=== PATIENT | female | born 1965 | race Caucasian/White ===

== ENCOUNTER → 2024-01-12 09:23 | Outpatient (REF) | payer OTHER, SELFPAY | LOC: RCS 09:23 | PROVIDERS: ATTENDING PHYSICIAN Internal Medicine Cardiovascular Disease; FAMILY PHYSICIAN Nurse Practitioner Family | DX: R07.9 Chest pain, unspecified (principal); I10 Essential (primary) hypertension; R06.02 Shortness of breath; E78.2 Mixed hyperlipidemia; R73.01 Impaired fasting glucose; R79.89 Other specified abnormal findings of blood chemistry; R82.90 Unspecified abnormal findings in urine | CPT/HCPCS: 93017; 36415 ==

== ENCOUNTER 2024-09-30 10:06 | Emergency (ER) | payer OTHER, SELFPAY ==
[2024-09-30 10:35] VITALS: BP 165/95
[2024-09-30 11:17] VITALS: BP 177/104
[2024-09-30 11:48] LABS: % Basophils 0.9 % (0-2); % Eosinophils 1.5 % (0-6); % Immature Granulocytes 0.4 % (0-0.5); % Lymphocytes 16.7 % (20.5-51.1); % Monocytes 8.5 % (1.7-9.3); Absolute Basophils 0.1 10^3/uL (0-0.2); Absolute Eosinophils 0.1 10^3/uL (0-0.7); Absolute Lymphocytes 0.9 10^3/uL (1.2-3.4); Absolute Monocytes 0.5 10^3/uL (0.1-0.6); Absolute Neutrophils 3.8 10^3/uL (1.4-6.5); Hematocrit 43.6 % (37.0-47.0); Mean Corp Hgb Conc. 34.4 g/dL (33.0-37.0); Mean Corpuscular Hgb 31.1 pg (27.0-31.0); Mean Corpuscular Volume 90.5 fL (81.0-99.0); Mean Platelet Volume 8.7 fL (7.4-10.4); Nucleated Red Blood Cells % 0 %; Platelet Count 404 10^3/uL (130-400); Red Blood Cell Count 4.82 10^6/uL (4.20-5.40); Red Cell Dist. Width 12.9 % (11.5-14.5); White Blood Cell Count 5.3 10^3/uL (4.8-10.8)
[2024-09-30 12:01] LABS: ALT (SGPT) 51 U/L (0-35); AST (SGOT) 45 U/L (14-36); Albumin 4.5 g/dl (3.5-5.0); Alkaline Phosphatase 82 U/L (38-126); Blood Urea Nitrogen 17 mg/dl (7-17); Calcium 9.9 mg/dl (8.4-10.2); Carbon Dioxide 27 mmol/L (22-30); Chloride 100 mmol/L (98-107); Glucose 107 mg/dl (70-99); Potassium 4.6 mmol/L (3.5-5.1); Sodium 137 mmol/L (135-145); Total Bilirubin 0.5 mg/dl (0.2-1.3); eGFR > 60.00
[2024-09-30 12:13] LABS: Troponin I < 0.012 ng/ml
--- NOTE | 2024-09-30 12:51 | ED.GENMED ---
History of Present Illness
General
Chief Complaint: Abdominal Pain
Source: patient
Exam Limitations: none
Time Seen by Provider: 09/30/24 12:50
Nursing documentation reviewed up to this point in time: agreed with
History of Present Illness
History of Present Illness:
59-year-old female with history of HTN, anxiety presents for a 5 minute episode at 9:45 a.m. of sudden onset sharp left side pain under her left breast that slowly subsided after 5 minutes. With the pain she had 'trouble breathing, my heart was
racing so I took a Baby Aspirin' during this time she also felt 'tingly in my hands and all over,' and came here. Had a slight discomfort in same area while in [place] but this also passed. Denies symptoms now.
Past History
Past History
ED Past Medical History: Psychiatric
ED Past Surgical History: None
Social History
Tobacco: Non-smoker
Alcohol: None
Drug: None
Personal:
Living: with family
Employment: Employed
Family History
Family History: Other
Review of Systems
Review of Systems
Allergies reviewed?: Yes
All Other Systems: ROS reviewed and negative except as documented in HPI and ROS
Constitutional: Denies fever or fatigue
Respiratory: Denies trouble breathing
Cardiac: Reports chest pain; Denies diaphoresis, palpitations or syncope
ABD/GI: Denies abdominal pain, nausea or vomiting
: Denies dysuria, frequency or difficulty voiding
Musculoskeletal: Reports no symptoms
Skin: Reports no symptoms
Neurological: Reports no symptoms
Phy Exam
Physical Exam
Physical Exam:
GENERAL: No acute distress. A&Ox3.
CONSTITUTIONAL: Afebrile.
EYES: clear, conjunctivae normal
ENMT: moist mucus membranes
RESPIRATORY: Regular respirations, nonlabored, lungs clear.
CARDIOVASCULAR: Regular rate and rhythm, slight murmur, no rubs.
GI: Soft, nontender, normal BS
MUSCULOSKELETAL: Moves with ease. Well perfused.
SKIN: Warm, dry, pink
PSYCH: Normal mood and affect. Well kept, interactive and appropriate
NEUROLOGIC: Awake, alert and oriented. No focal neurological deficits
Course
Orders/Labs/Results
Orders:
Orders
09/30/24 11:08
Electrocardiogram (*1) Urgent
Reason for Study: Abdominal Pain
EKG- Treatment ONCE
09/30/24 11:28
Complete Blood Count/With Diff Urgent
Comprehensive Metabolic Panel Urgent
Lipase Urgent
Troponin I Urgent
09/30/24 12:51
Add On- LAB Urgent
Tests Added?: Lipase
09/30/24 13:31
Troponin I Urgent
Abnormal Lab Results
09/30/24
11:28
MCH 31.1 H pg
(27.0-31.0)
Plt Count 404 H 10^3/uL
(130-400)
Absolute Lymphs (auto) 0.9 L 10^3/uL
(1.2-3.4)
Lymphocytes % 16.7 L %
(20.5-51.1)
Glucose 107 H mg/dl
(70-99)
AST 45 H U/L
(14-36)
ALT 51 H U/L
(0-35)
09/30/24 11:28
09/30/24 11:28
Vital Signs
Initial and Last Documented VS:
Initial Vital Signs
Temp Pulse Resp Pulse Ox
98.0 F 90 18 102
09/30/24 10:34 09/30/24 10:34 09/30/24 10:34 09/30/24 10:34
Last Documented Vital Signs
Temp Pulse Resp BP Pulse Ox
98.6 F 72 18 130/83 96
09/30/24 13:48 09/30/24 15:10 09/30/24 15:10 09/30/24 15:10 09/30/24 13:48
MDM/Problems Addressed
Differential Diagnosis Includes:
Musculoskeletal pain, OR,
MDM/Problems Addressed:
59-year-old female with history of HTN, anxiety presents for a 5 minute episode at 9:45 a.m. of sudden onset sharp left side pain under her left breast that slowly subsided after 5 minutes. With the pain she had 'trouble breathing, my heart was
racing so I took a Baby Aspirin' during this time she also felt 'tingly in my hands and all over,' and came here. Had a slight discomfort in same area while in [place] but this also passed. Denies symptoms now.
CBC normal
CMP normal
Troponin normal
EKG NSR
PE unremarkable save for a mild murmur which she states she was not aware of
1:00 p.m.
Reassured nothing acute
Most likely musculoskeletal
Asymptomatic now
Referred to Cardiology for murmur evaluation
Troponin #2 pending
3:00 p.m
Tropnin #2 neg
Pt stable for discharge
*EKG
EKG Intrepretation Date: 09/30/24
Interpretation: normal
Comparison EKG: no changes
Rate: normal
Rhythm: sinus
[place]: normal axis
Interval: normal interval
QRS Pattern: normal QRS
Ischemia: no ischemia
*Critical Care Note
Total Time (30-74mins, 75-104mins- exclusive of procedures): Not Applicable
ED Attending Note
-
Portions of this chart may have been created with voice recognition software.� Occasional wrong word or��sound alike� substitutions may have occurred due to the inherent limitations of voice recognition software.
Discharge Plan
Departure
Patient Disposition: Home (Routine Discharge)
Date of Disposition: 09/30/24
Time of Disposition: 15:05
Patient with high blood pressure during this ER visit?: Yes
Condition: Good
Discharge Problem:
Atypical chest pain
Instructions: Chest pain - Discharge instructions
Prescriptions:
No Action
metoprolol tartrate 25 MG tablet
25 mg PO DAILY
prednisone 10 MG tablet
10 mg PO .TAPER Qty: 30 0RF
Rx Instructions:
Take 40mg daily x3days, 30mg daily x3days,
20mg daily x3days, 10mg daily x3days.
venlafaxine 75 MG capsule,extended release 24hr
75 mg PO DAILY 30 Days Qty: 30 0RF
hydroxyzine pamoate [Vistaril] 25 MG capsule
25 mg PO BID PRN (Reason: anxiety) Qty: 20 0RF
Referrals:
Heriberto Leal MD [Active] - Next open appointment
Nicole Stewart CRNP [Family Provider] -
Jose Alberto Yates MD [Active] - Next open appointment
Activity Restrictions/Additional Instructions:
As we discussed, this was most likely musculoskeletal pain. Nothing worrisome in your workup here today.
I do hear a slight murmur, check with your PCP to see if it was noted in the past.
I gave you the name of a [employer], call and make appointment for a more thorough cardiac evaluation.
Return here immediately for chest pain that remains, chest pain with breaking out in a sweat, nausea/vomiting, lightheadedness or feeling sicker in any way.
Interventions
Interventions:
*Risk Screen - Suicide Last Done: 09/30/24 11:38
*General Assessment Last Done: 09/30/24 10:37
*Neglect/Abuse Screening Last Done: 09/30/24 11:38
*ED COVID-19 Vaccine History Last Done: 09/30/24 10:37
*Nursing Disposition Last Done: 09/30/24 15:11
LA-Obcufq-Tdjxgrizpl Assessment Last Done: 09/30/24 11:38
Discharge Date and Time
Discharge Date/Time: 09/30/24 15:11
Print Language: IVORIAN
[2024-09-30 13:37] LABS: Lipase 41 U/L (23-300)
[2024-09-30 13:48] VITALS: BP 140/89
[2024-09-30 14:37] LABS: Troponin I < 0.012 ng/ml
[2024-09-30 15:10] VITALS: BP 130/83
== END 2024-09-30 15:11 | disposition home or self-care (01) ==
LOC: EMR 10:06
PROVIDERS: Registered Nurse; EMERGENCY PHYSICIAN Emergency Medicine; FAMILY PHYSICIAN Nurse Practitioner Family
DX: R07.89 Other chest pain (principal); I10 Essential (primary) hypertension
CPT/HCPCS: 99284; 80053; 83690; 84484; 85025; 93005

== ENCOUNTER → 2024-10-20 07:53 | Outpatient (REF) | payer OTHER, SELFPAY | LOC: HWRAD 07:53 | PROVIDERS: ATTENDING PHYSICIAN Family Medicine; FAMILY PHYSICIAN Nurse Practitioner Family | DX: M54.9 Dorsalgia, unspecified (principal); R74.8 Abnormal levels of other serum enzymes | CPT/HCPCS: 76700 ==

== ENCOUNTER → 2024-10-27 15:48 | Outpatient (REF) | payer OTHER, SELFPAY | LOC: HWRCS 15:48 | PROVIDERS: ATTENDING PHYSICIAN Nurse Practitioner; FAMILY PHYSICIAN Nurse Practitioner Family | DX: R06.02 Shortness of breath (principal) | CPT/HCPCS: 93306 ==